=== PATIENT | male | born 1980 | race Caucasian/White ===

== ENCOUNTER 2016-10-12 19:59 | Emergency (ER) | payer SELFPAY ==
[2016-10-12 20:05] VITALS: BP 157/82; PULSE 97; RESP 18; TEMP 100.3; O2SAT 98
[2016-10-12] MEDS ORDERED: PIPERACIL-TAZO 4.5 GM PREMIX 100 ML IV STA (21:20)
[2016-10-12] MEDS ORDERED: SODIUM CHLOR 0.9% 1000 ML INJ 1,000 ML IV ONE ×2 (21:20)
[2016-10-12] MEDS ORDERED: SODIUM CHLOR 0.9% 1000 ML INJ 700 ML IV ONE (21:20)
[2016-10-12] MEDS ORDERED: VANCOMYCIN INJ 1,000 MG in SODIUM CHLOR 0.9% 250 ML INJ 250 ML IV STA (21:20)
[2016-10-12] MEDS ORDERED: ACETAMINOPHEN 325 MG TAB PO ONE (21:30)
--- NOTE | 2016-10-12 21:55 | RADRPT ---
EXAM DATE/TIME: 10/12/2016 21:40 [facility] COMPARISON: No previous studies available for comparison. INDICATIONS : Infection in foot. MEDICAL HISTORY : None. SURGICAL HISTORY : None. ENCOUNTER: Initial ACUITY: 4 - 6 days PAIN SCORE: 0/10 LOCATION: Bilateral chest FINDINGS: A single view of the chest demonstrates the lungs to be symmetrically aerated without evidence of mas s, infiltrate or effusion. The cardiomediastinal contours are unremarkable. Osseous structures are intact. CONCLUSION: No acute disease. Frnaklyn Chahal MD on October 12, 2016 at 21:53 Board Certified Radiologist. This report was verified electronically.
[2016-10-12 22:44] VITALS: RESP 18; TEMP 99.3; O2SAT 97
[2016-10-12 22:45] LABS: AUTOMATED NEUTROPHIL # 7.6 TH/MM3 (1.8-7.7); BASOPHIL % 0.4 % (0.0-2.0); EOSINOPHIL # 0.1 TH/MM3 (0-0.4); EOSINOPHIL % 0.7 % (0.0-4.0); HEMATOCRIT 47.6 % (39.0-51.0); HEMO FLAGS DIFF FINAL; LYMPHOCYTE # 1.5 TH/MM3 (1.0-4.8); MEAN CELL VOLUME 88.5 FL (80.0-100.0); MEAN CORPUSCULAR HEMOGLOBIN 29.9 PG (27.0-34.0); MEAN CORPUSCULAR HGB CONC 33.8 % (32.0-36.0); MONO % 6.4 % (0.0-8.0); NEUT % 77.5 % (16.0-70.0); PLATELET COUNT 179 TH/MM3 (150-450); RED BLOOD COUNT 5.38 MIL/MM3 (4.50-5.90); RED CELL DISTRIBUTION WIDTH 14.2 % (11.6-17.2); WHITE BLOOD COUNT 9.7 TH/MM3 (4.0-11.0)
[2016-10-12 23:05] LABS: BACTERIA, URINE RARE /hpf; BLOOD, URINE NEG (NEG); COMMENT (UR) CATH-CULTURE IND; CULTURE IF INDICATED CATH CULTURE IND; GLUCOSE,URINE NEG (NEG); KETONE, URINE NEG (NEG); NITRITE,URINE NEG (NEG); URINE COLOR YELLOW (YELLW/STRAW)
[2016-10-12 23:13] LABS: BLOOD UREA NITROGEN 11 MG/DL (7-18); GLOMERULAR FILTRATION RATE 77 ML/MIN (>89)
[2016-10-12 23:14] LABS: ALKALINE PHOSPHATASE 76 U/L (45-117); ALT (GPT) 31 U/L (12-78); AST (GOT) 27 U/L (15-37); BICARBONATE 30.3 MEQ/L (21.0-32.0); SODIUM (NA) 138 MEQ/L (136-145); TOTAL BILIRUBIN ADULT 0.8 MG/DL (0.2-1.0)
[2016-10-12 23:35] LABS: CHLORIDE 103 MEQ/L (98-107)
[2016-10-12 23:36] LABS: ANION GAP 5 MEQ/L (5-15)
[2016-10-13] MEDS ORDERED: IOHEXOL 350 MG/ML 10 ML VIAL (for RAD DIAG) IVCONTRAST ONE (00:25)
--- NOTE | 2016-10-13 00:55 | RADRPT ---
EXAM DATE/TIME: 10/13/2016 00:03 [facility] COMPARISON: No previous studies available for comparison. INDICATIONS : First digit pain and swelling with fever. Evaluate for necrotizing fascitis. IV CONTRAST: 100 cc Omnipaque 350 (iohexol) IV ; Cumulative dose for multiple exams. RADIATION DOSE: 14.57 CTDIvol (mGy) ; Combined studies MEDICAL HISTORY : Hepatitis C. SURGICAL HISTORY : None. ENCOUNTER: Initial ACUITY: 2 days PAIN SCALE: 10/10 LOCATION: Left first digit. TECHNIQUE: Volumetric scanning of the foot was performed. Using automated exposure control and adjustment of th e mA and/or kV according to patient size, radiation dose was kept as low as reasonably achievable to obtain optimal diagnostic quality images. DICOM format image data is available electronically for re view and comparison. FINDINGS: BONES: No evidence of fracture. Alignment is within normal limits. JOINTS: No evidence of joint narrowing or effusion. SOFT TISSUES: Mild soft tissue prominence along the lateral plantar aspect of the fifth metatarsophalangeal region. No associated bony erosion or significant joint effusion. No focal drainable fluid collections. No e vidence of subcutaneous emphysema. No significant soft tissue abnormality involving the first digit. No foreign body or subcutaneous eczema. CONCLUSION: 1. Mild soft tissue prominence along the lateral plantar aspect of the fifth metatarsophalangeal oscar on without associated bony erosion, significant joint effusion, or drainable fluid collection. No sub cutaneous emphysema to suggest necrotizing fasciitis as questioned. 2. No significant soft tissue abnormality involving the first digit. Nirmal Hussein MD on October 13, 2016 at 0:47 Board Certified Radiologist. This report was verified electronically.
--- NOTE | 2016-10-13 01:01 | RADRPT ---
EXAM DATE/TIME: 10/13/2016 00:03 [facility] COMPARISON: CT FOOT LEFT W CONTRAST, October 13, 2016, 0:03. INDICATIONS : Left lower leg swelling and pain. Evaluate for necrotizing fascitis. IV CONTRAST: 100 cc Omnipaque 350 (iohexol) IV ; Cumulative dose for multiple exams. RADIATION DOSE: 14.57 CTDIvol (mGy) ; Combined studies MEDICAL HISTORY : Hepatitis C. SURGICAL HISTORY : None. ENCOUNTER: Initial ACUITY: 2 days PAIN SCALE: 10/10 LOCATION: Left lower leg. TECHNIQUE: Volumetric scanning of the tibia and fibula was performed. Using automated exposure control and adju stment of the mA and/or kV according to patient size, radiation dose was kept as low as reasonably ac hievable to obtain optimal diagnostic quality images. DICOM format image data is available [facility] for review and comparison. FINDINGS: BONES: No evidence of fracture. Alignment is within normal limits. JOINTS: No evidence of joint narrowing or effusion. SOFT TISSUES: Mild soft tissue edema along the anteromedial distal thigh. Mild soft tissue edema in the posterior d istal ankle and Heel region. No foreign body, pedicle fluid collection, or soft tissue emphysema to s uggest necrotizing fasciitis as questioned. CONCLUSION: 1. Mild soft tissue edema and stranding consistent with cellulitis in the distal anteromedial thigh a nd distal ankle extending to the heel region. No evidence for soft tissue emphysema or abscess. Nirmal Hussein MD on October 13, 2016 at 0:53 Board Certified Radiologist. This report was verified electronically.
[2016-10-13] MEDS ORDERED: BACT800T5 PO (01:08)
[2016-10-13] MEDS ORDERED: IBUP-232 PO (01:09)
--- NOTE | 2016-10-13 01:09 | PD ---
HPI Chief Complaint: Skin Problem Time Seen by Provider: 21:17 Travel History International Travel<30 days: No Contact w/Intl Traveler<30days: No Traveled to known affect area: No History of Present Illness HPI 36-year-old male came to the emergency room with history of severe left foot pain for past 1 week. He says is progressively worsening. Patient is homeless currently and says he thinks he got bitten by something. It is his great toe and middle toe that hurts the worst. He says he has been running fever and getting chills. His temperature was 100.3 in triage with some tachycardia. He denies any IV drug abuse. Patient seem to be anxious and was requesting something for his pain. [facility] Past Medical History Narrative Medical List of his past medical, surgical, social and family history as reviewed from the nursing note. Hepatitis: Yes (C) Medical other: Yes Social History Alcohol Use: No Tobacco Use: No Allergies-Medications (Allergen,Severity, Reaction): Coded Allergies: No Known Allergies (Verified Allergy, Unknown, 10/13/16) Comments No known drug allergies. Reported Meds & Prescriptions Reported Meds & Active Scripts Active Ibuprofen 600 Mg Tab 600 Mg PO Q6H PRN Bactrim DS (Sulfamethoxazole-Trimethoprim) 800-160 Mg Tab 1 Tab PO BID Narrative Medication List of his home medications reviewed from the nursing note. Review of Systems Except as stated in HPI: all other systems reviewed are Neg Physical Exam Narrative GENERAL: Awake, alert, disheveled, poor skin hygiene SKIN: Poor skin hygiene, multiple blanching erythematous maculopapular rash that appeared to be like bug bites. Left foot the webspace between the great toe and the middle toe is erythematous, swollen and tender to touch. There are multiple small vesicular pustular lesions on both toes dorsally. Middle toe is swollen. There is some streaking going distally from the foot all the way up to the knee. HEAD: Atraumatic. Normocephalic. EYES: Pupils equal and round. No scleral icterus. No injection or drainage. ENT: No nasal bleeding or discharge. Mucous membranes pink and moist. NECK: Trachea midline. No JVD. CARDIOVASCULAR: Regular rate and rhythm. No murmur appreciated. RESPIRATORY: No accessory muscle use. Clear to auscultation. Breath sounds equal bilaterally. GASTROINTESTINAL: Abdomen soft, non-tender, nondistended. Hepatic and splenic margins not palpable. MUSCULOSKELETAL: No obvious deformities. No clubbing. No cyanosis. No edema. NEUROLOGICAL: Awake and alert. No obvious cranial nerve deficits. Motor grossly within normal limits. Normal speech. PSYCHIATRIC: Appropriate mood and affect; insight and judgment normal. Data Data Last Documented VS Orders Orders Complete Blood Count With Diff (10/12/16 21:20) Comprehensive Metabolic Panel (10/12/16 21:20) Lactic Acid Sepsis Protocol (10/12/16 21:20) Urinalysis - C+S If Indicated (10/12/16 21:20) Blood Culture (10/12/16 21:20) Chest, Single Ap (10/12/16 21:20) Blood Glucose (10/12/16 21:20) Ecg Monitoring (10/12/16 21:20) Iv Access Insert/Monitor (10/12/16 21:20) Oximetry (10/12/16 21:20) Oxygen Administration (10/12/16 21:20) Piperacil-Tazo 4.5 Gm Premix (Zosyn 4.5 (10/12/16 21:20) Vancomycin Inj (Vancomycin Inj) (10/12/16 21:20) Sodium Chlor 0.9% 1000 Ml Inj (Ns 1000 M (10/12/16 21:20) Sodium Chlor 0.9% 1000 Ml Inj (Ns 1000 M (10/12/16 21:20) Sodium Chlor 0.9% 1000 Ml Inj (Ns 1000 M (10/12/16 21:20) Drug Screen, Random Urine (10/12/16 21:20) Acetaminophen (Tylenol) (10/12/16 21:30) Ct Foot W Iv Contrast (10/12/16 ) Ct Tib/Fib W Iv Contrast (10/12/16 ) Urine Culture (10/12/16 22:15) Iohexol 350 Inj (Omnipaque 350 Inj) (10/13/16 00:25) Labs Laboratory Tests Test 10/12/16 22:15 White Blood Count 9.7 TH/MM3 Red Blood Count 5.38 MIL/MM3 Hemoglobin 16.1 GM/DL Hematocrit 47.6 % Mean Corpuscular Volume 88.5 FL Mean Corpuscular Hemoglobin 29.9 PG Mean Corpuscular Hemoglobin Concent 33.8 % Red Cell Distribution Width 14.2 % Platelet Count 179 TH/MM3 Mean Platelet Volume 8.1 FL Neutrophils (%) (Auto) 77.5 % Lymphocytes (%) (Auto) 15.0 % Monocytes (%) (Auto) 6.4 % Eosinophils (%) (Auto) 0.7 % Basophils (%) (Auto) 0.4 % Neutrophils # (Auto) 7.6 TH/MM3 Lymphocytes # (Auto) 1.5 TH/MM3 Monocytes # (Auto) 0.6 TH/MM3 Eosinophils # (Auto) 0.1 TH/MM3 Basophils # (Auto) 0.0 TH/MM3 CBC Comment DIFF FINAL Differential Comment Urine Color YELLOW Urine Turbidity CLEAR Urine pH 7.0 Urine Specific [place] 1.018 Urine Protein NEG mg/dL Urine Glucose (UA) NEG mg/dL Urine Ketones NEG mg/dL Urine Occult Blood NEG Urine Nitrite NEG Urine Bilirubin NEG Urine Urobilinogen 2.0 MG/DL Urine Leukocyte Esterase NEG Urine RBC 1 /hpf Urine WBC 1 /hpf Urine Bacteria RARE /hpf Microscopic Urinalysis Comment CATH-CULTURE IND Blood Urea Nitrogen 11 MG/DL Creatinine 1.09 MG/DL Random Glucose 89 MG/DL Total Protein 7.8 GM/DL Albumin 4.0 GM/DL Calcium Level 8.9 MG/DL Alkaline Phosphatase 76 U/L Aspartate Amino Transf (AST/SGOT) 27 U/L Alanine Aminotransferase (ALT/SGPT) 31 U/L Total Bilirubin 0.8 MG/DL Sodium Level 138 MEQ/L Potassium Level 4.0 MEQ/L Chloride Level 103 MEQ/L Carbon Dioxide Level 30.3 MEQ/L Anion Gap 5 MEQ/L Estimat Glomerular Filtration Rate 77 ML/MIN Lactic Acid Level 0.7 mmol/L Urine Opiates Screen NEG Urine Barbiturates Screen NEG Urine Amphetamines Screen NEG Urine Benzodiazepines Screen NEG Urine Cocaine Screen POS Urine Cannabinoids Screen POS [facility] Medical Decision Making Medical Screen Exam Complete: Yes Emergency Medical Condition: Yes Medical Record Reviewed: Yes Differential Diagnosis Cellulitis, necrotizing fasciitis, osteomyelitis Narrative Course 1:05 AM patient was started treatment as per sepsis protocol given the possibility of necrotizing fasciitis. Blood test results of back and CBC and chemistry is within acceptable limits. Lactic acid is not elevated. I had ordered CT scan of the lower extremity. It has been done and currently awaiting for the report. Patient had repeatedly denied any street drug use. However the cocaine and marijuana is positive and urine drug screen. 1:[address] scan report is back and does not show any signs of necrotizing fasciitis, abscess or joint effusion. I will discharge him home on prescription for Bactrim. Procedures EKG Prior to Arrival: No Diagnosis Primary Impression: Cellulitis Qualified Codes: L03.116 - Cellulitis of left lower limb Additional Impression: Polysubstance abuse Referrals: Primary Care Physician 1 week Additional Instructions: Return to the ER if the condition worsens or any other new concerns. Take the medication as per the prescription direction. Follow-up with your primary care as soon as possible. Med/Other Pt SpecificInfo: Prescription(s) given Scripts Ibuprofen (Ibuprofen) 600 Mg Tab 600 MG PO Q6H Y for Pain/Inflammation, #40 TAB 0 Refills Prov: Jakub Mooney MD 10/13/16 Sulfamethoxazole-Trimethoprim (Bactrim DS) 800-160 Mg Tab 1 TAB PO BID for Infection, #20 TAB 0 Refills Prov: Jakub Mooney MD 10/13/16 Disposition: 01 DISCHARGE HOME Condition: Stable Jakub Mooney MD Oct 13, 2016 01:09
== END 2016-10-13 02:13 | disposition home or self-care (01) ==
LOC: NEPD 19:59
DX: L03.116 Cellulitis of left lower limb (principal); F19.10 Other psychoactive substance abuse, uncomplicated; Z59.0 Homelessness
CPT/HCPCS: 71010; 73701; 80053; 80307; 81001; 83605; 85025; 87040; 87086; 96365; 96375; 99285; J2543; J3370; J7030; J7050; Q9967

== ENCOUNTER 2016-10-13 06:15 | Emergency (ER) | payer SELFPAY ==
[~2016-10-13 06:15] MED LIST: BACT800T5 PO; IBUP-232 PO
[2016-10-13 06:17] VITALS: BP 140/77; PULSE 83; RESP 16; TEMP 98.1; O2SAT 98
--- NOTE | 2016-10-13 06:39 | PD ---
HPI Chief Complaint: Skin Problem Time Seen by Provider: 06:39 Travel History International Travel<30 days: No Contact w/Intl Traveler<30days: No Traveled to known affect area: No History of Present Illness HPI 36-year-old male who is currently homeless, presents to emergency department for the second time today for evaluation left foot pain. Patient was seen earlier today, diagnosed with cellulitis, and given prescription of her medication antibiotic that he has not filled. Patient returns because he has never heard of cellulitis and does not believe this is his diagnosis. History Past Medical Histgory Medical History: Denies Significant Hx Social History Alcohol Use: No Tobacco Use: No Allergies-Medications (Allergen,Severity, Reaction): Coded Allergies: No Known Allergies (Verified Allergy, Unknown, 10/13/16) Reported Meds & Prescriptions Reported Meds & Active Scripts Active Ibuprofen 600 Mg Tab 600 Mg PO Q6H PRN Bactrim DS (Sulfamethoxazole-Trimethoprim) 800-160 Mg Tab 1 Tab PO BID Review of Systems Except as stated in HPI: all other systems reviewed are Neg Physical Exam Narrative GENERAL: Unkempt male patient, in no acute distress. SKIN: Blanching, erythematous maculopapular rash on the dorsal aspect of the left foot. With associated edema of the first and second toe. Left foot the webspace between the great toe and the middle toe is erythematous, swollen and tender to touch. There are multiple small vesicular pustular lesions on both toes dorsally. Streaking documented earlier has decreased significantly. HEAD: Atraumatic. Normocephalic. EYES: Pupils equal and round. No scleral icterus. No injection or drainage. ENT: No nasal bleeding or discharge. Mucous membranes pink and moist. NECK: Trachea midline. No JVD. CARDIOVASCULAR: Regular rate and rhythm. No murmur appreciated. RESPIRATORY: No accessory muscle use. Clear to auscultation. Breath sounds equal bilaterally. GASTROINTESTINAL: Abdomen soft, non-tender, nondistended. Hepatic and splenic margins not palpable. MUSCULOSKELETAL: No obvious deformities. No clubbing. No cyanosis. Mild dorsal pedal edema of the left foot. NEUROLOGICAL: Awake and alert. No obvious cranial nerve deficits. Motor grossly within normal limits. Normal speech. Data Data Last Documented VS Vital Signs Date Time Temp Pulse Resp B/P (MAP) Pulse Ox O2 Delivery O2 Flow Rate FiO2 10/13/16 06:17 98.1 83 16 140/77 (98) 98 Room Air [facility] Medical Screen Exam Complete: Yes Emergency Medical Condition: No Differential Diagnosis Left foot cellulitis Narrative Course 36-year-old male presents to the emergency department for a second opinion of a low diagnosis of left foot cellulitis given earlier today. Patient's history and assessment is consistent with a cellulitis. He was given IV vancomycin earlier. He has not yet started his oral antibiotic. I have re-counseled on care, encouraged elevation of the extremity, and starting his oral antibiotic today. At this time there is no urgent need for further intervention. A medical screening exam was performed: At the time of evaluation the presenting medical condition was determined not to be of an emergent nature. The patient was given the option of receiving additional care, but declined. Patient was given options for additional community resources from which to obtain care. The Patient Has Been advised to seek medical attention for their presenting complaint. The patient has been advised to return to the ER at any time if an emergent condition develops. Primary Impression: Encounter for medical screening examination Condition: Stable Lavern Jenkins Oct 13, 2016 06:39
== END 2016-10-13 11:00 | disposition left against medical advice (07) ==
LOC: NEPD 06:15
DX: M79.672 Pain in left foot (principal); L03.116 Cellulitis of left lower limb
CPT/HCPCS: 99281

== ENCOUNTER 2016-10-14 20:46 | Emergency (ER) | payer SELFPAY ==
[2016-10-14 21:00] VITALS: BP 143/69; PULSE 85; RESP 18; TEMP 99.3; O2SAT 99
[2016-10-14] MEDS ORDERED: IBUPROFEN 600 MG TAB PO ONE (21:15)
[2016-10-14] MEDS ORDERED: VANCOMYCIN INJ 1,000 MG in SODIUM CHLOR 0.9% 250 ML INJ 250 ML IV STA (21:15)
[2016-10-14] MEDS ORDERED: SODIUM CHLOR 0.9% 1000 ML INJ 1,000 ML IV ONE (21:15)
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
--- NOTE | 2016-10-14 21:47 | RADRPT ---
EXAM DATE/TIME: 10/14/2016 21:25 [facility] COMPARISON: No previous studies available for comparison. INDICATIONS : Pain on top of left foot due to infection. MEDICAL HISTORY : None. SURGICAL HISTORY : None. ENCOUNTER: Initial ACUITY: 1 week PAIN SCORE: 9/10 LOCATION: Left top of foot FINDINGS: Two view examination of the left foot demonstrates no dislocation, or fracture. The calcaneus is int act. Bony mineralization is normal. CONCLUSION: 1. Soft tissue swelling on the dorsum of the foot. Mild pes planus. No acute bony abnormalities. Franklyn Chahal MD on October 14, 2016 at 21:44 Board Certified Radiologist. This report was verified electronically.
[2016-10-14 21:52] LABS: AUTOMATED NEUTROPHIL # 6.5 TH/MM3 (1.8-7.7); BASOPHIL % 0.3 % (0.0-2.0); EOSINOPHIL % 0.5 % (0.0-4.0); HEMATOCRIT 41.4 % (39.0-51.0); HEMO FLAGS DIFF FINAL; LYMPH % 12.3 % (9.0-44.0); MEAN CELL VOLUME 88.9 FL (80.0-100.0); MEAN CORPUSCULAR HEMOGLOBIN 30.2 PG (27.0-34.0); MONO % 9.4 % (0.0-8.0); NEUT % 77.5 % (16.0-70.0); PLATELET COUNT 143 TH/MM3 (150-450); RED BLOOD COUNT 4.66 MIL/MM3 (4.50-5.90); RED CELL DISTRIBUTION WIDTH 13.8 % (11.6-17.2); WHITE BLOOD COUNT 8.3 TH/MM3 (4.0-11.0)
[2016-10-14 22:15] LABS: ALT (GPT) 76 U/L (12-78); ANION GAP 8 MEQ/L (5-15); AST (GOT) 115 U/L (15-37); BICARBONATE 26.3 MEQ/L (21.0-32.0); BLOOD UREA NITROGEN 13 MG/DL (7-18); CHLORIDE 103 MEQ/L (98-107); GLOMERULAR FILTRATION RATE 68 ML/MIN (>89); POTASSIUM 3.8 MEQ/L (3.5-5.1); SODIUM (NA) 137 MEQ/L (136-145)
[2016-10-14 22:18] LABS: ALKALINE PHOSPHATASE 53 U/L (45-117); TOTAL BILIRUBIN ADULT 0.6 MG/DL (0.2-1.0)
== END 2016-10-14 22:48 | disposition home or self-care (01) ==
LOC: NEPE 20:46
DX: L03.116 Cellulitis of left lower limb (principal)
CPT/HCPCS: 73620; 80053; 83605; 85025; 87040; 96365; 99284; J3370; J7030; J7050